=== PATIENT | male | born 1945 | race Caucasian/White ===

== ENCOUNTER 2022-11-20 09:47 | Outpatient (CLI) | payer MEDICARE | END 2022-11-20 09:48 | disposition home or self-care (01) | LOC: ULT 09:47 | PROVIDERS: ATTEND Internal Medicine Gastroenterology | DX: K21.9 Gastro-esophageal reflux disease without esophagitis (principal); E83.110 Hereditary hemochromatosis; R16.0 Hepatomegaly, not elsewhere classified; K80.20 Calculus of gallbladder without cholecystitis without obstruction | CPT/HCPCS: 76705 ==

== ENCOUNTER 2022-12-16 11:04 | Outpatient (CLI) | payer MEDICARE | END 2022-12-16 11:05 | disposition home or self-care (01) | LOC: SCSMRI 11:04 | PROVIDERS: ATTEND Nurse Practitioner Family | DX: M47.26 Other spondylosis with radiculopathy, lumbar region (principal); M96.1 Postlaminectomy syndrome, not elsewhere classified; M51.16 Intervertebral disc disorders with radiculopathy, lumbar region; M48.061 Spinal stenosis, lumbar region without neurogenic claudication; M89.38 Hypertrophy of bone, other site | CPT/HCPCS: 72148 ==

== ENCOUNTER 2023-05-08 11:12 | Outpatient (CLI) | payer MEDICARE | END 2023-05-08 11:13 | disposition home or self-care (01) | LOC: BICCT 11:12 | PROVIDERS: ATTEND Internal Medicine | DX: Z12.2 Encounter for screening for malignant neoplasm of respiratory organs (principal); F17.210 Nicotine dependence, cigarettes, uncomplicated; I25.10 Atherosclerotic heart disease of native coronary artery without angina pectoris | CPT/HCPCS: 71271 ==

== ENCOUNTER 2023-08-06 13:42 | Outpatient (CLI) | payer MEDICARE | END 2023-08-06 13:43 | disposition home or self-care (01) | LOC: CT 13:42 | PROVIDERS: ATTEND Orthopaedic Surgery | DX: M17.11 Unilateral primary osteoarthritis, right knee (principal); M16.0 Bilateral primary osteoarthritis of hip ==

== ENCOUNTER 2023-08-11 12:44 | Outpatient (CLI) | payer MEDICARE ==
[2023-08-11 13:52] LABS: #Basophils 0.07 10x3/uL (0.0-0.2); #Monocytes 0.68 10x3/uL (0.0-1.1); #Neutrophils 4.39 10x3/uL (1.5-8.4); %Basophils 0.9 % (0.0-2.0); %Eosinophils 2.7 % (0.0-6.0); %Lymphocytes 28.3 % (18.0-47.0); %Monocytes 9.1 % (0.0-10.0); %Neutrophils 58.7 % (40.0-75.0); Hematocrit 42.8 % (38.8-50.0); Hemoglobin 15.5 g/dL (13.5-17.5); Mean Corpuscular HGB CONC 36.2 g/dL (32.0-36.0); Mean Corpuscular Hemoglobin 34.1 pg (27.0-33.0); Mean Corpuscular Volume 94.3 fL (81.2-95.1); Platelet Count 247 10x3/uL (150-450); RBC Distribution Width 13.3 % (11.5-14.5); Red Blood Cell (RBC) Count 4.54 10x6/uL (4.32-5.72); White Blood Cell (WBC) Count 7.5 10x3/uL (3.5-10.5)
[2023-08-11 13:58] LABS: Prothrombin Time 10.8 sec (9.5-12.1)
[2023-08-11 14:00] LABS: Anion Gap 13 mmol/L (10-20); BUN (Urea Nitrogen) 10 mg/dL (8.4-25.7); Calc. Creatinine Clearance 0 mL/min (70-130); Calcium 9.3 mg/dL (7.8-10.44); Carbon Dioxide 25 mmol/L (23-31); Chloride 101 mmol/L (98-107); Estimated GFR 91; Glucose 95 mg/dL (83-110); Potassium 3.9 mmol/L (3.5-5.1); Sodium 135 mmol/L (136-145)
== END 2023-08-11 12:45 | disposition home or self-care (01) ==
LOC: LABBT 12:44
PROVIDERS: ATTEND Orthopaedic Surgery
DX: Z01.812 Encounter for preprocedural laboratory examination (principal); M17.11 Unilateral primary osteoarthritis, right knee
CPT/HCPCS: 80048; 85025; 85610; 87081

== ENCOUNTER 2023-08-18 05:48 | Observation (INO) | payer MEDICARE ==
[2023-08-11 13:13] VITALS: BMI 28.2
[2023-08-18] MEDS ORDERED: Ondansetron PF 4 MG/2 ML Vial ONE (08:05)
[2023-08-18] MEDS ORDERED: Lidocaine 2% 6 ML (Jelly) SYR ONE (08:05)
[2023-08-18] MEDS ORDERED: Lidocaine 2% PF 100 mg/5 ml Syringe ONE (08:05)
[2023-08-18] MEDS ORDERED: Rocuronium Bromide 10 MG/ML (10ML VIAL) ONE (08:06)
[2023-08-18] MEDS ORDERED: Dexamethasone 20 MG/5 ML VIAL ONE (08:06)
[2023-08-18] MEDS ORDERED: SUGAMMADEX SODIUM 200 MG/2 ML VIAL ONE ×2 (08:07→12:06)
[2023-08-18] MEDS ORDERED: PROPOFOL 20 ML ONE (08:07)
[2023-08-18] MEDS ORDERED: fentaNYL PF 100 MCG/2 ML SYRINGE ONE (08:07)
[2023-08-18] MEDS ORDERED: Sodium Chloride 0.9% 100 ML ONE ×2 (08:13→09:00)
[2023-08-18] MEDS ORDERED: Tranexamic Acid 1,000 MG/10 ML VIAL ONE ×2 (08:13→08:14)
[2023-08-18] MEDS ORDERED: Vancomycin (BATCH) 1.5 GM/300 ML BAG ONE (08:14)
[2023-08-18] MEDS ORDERED: Bupivacaine PF 0.5% 30 ML VIAL ONE (08:23)
[2023-08-18] MEDS ORDERED: Midazolam HCl 2 mg/2 ml Vial ONE (08:23)
[2023-08-18] MEDS ORDERED: fentaNYL 50 mcg/mL 1 mL Vial ONE ×4 (08:23→13:49)
[2023-08-18] MEDS ORDERED: EPINEPHrine 1 MG/ML VIAL ONE (08:59)
[2023-08-18] MEDS ORDERED: Bupivacaine 0.25% HCL 30 ML VIAL ONE (09:00)
[2023-08-18] MEDS ORDERED: CEFAZOLIN 2 GM VIAL ONE (09:00)
[2023-08-18] MEDS ORDERED: fentaNYL 50 mcg/mL 1 mL Vial SLOW IVP PRN (09:32)
[2023-08-18] MEDS ORDERED: Zolpidem Tartrate 5 MG TAB PO PRN (09:45)
[2023-08-18] MEDS ORDERED: Promethazine HCl 25 MG/ML VIAL IM PRN (09:45)
[2023-08-18] MEDS ORDERED: traMADol HCl 50 MG TAB PO PRN ×2 (09:45)
[2023-08-18] MEDS ORDERED: Ondansetron PF 4 MG/2 ML Vial IVP PRN (09:45)
[2023-08-18] MEDS ORDERED: HYDROcodone/Acetaminophen 10/325 mg Tablet PO PRN (09:45)
[2023-08-18] MEDS ORDERED: Ropivacaine 0.2% 550 ML 550 ML NERVE BLCK SCH (09:45)
[2023-08-18] MEDS ORDERED: PHENYLEPHRINE-NS 100 MCG/ML 10 ML SYRINGE ONE (10:08)
[2023-08-18] MEDS ORDERED: Acetaminophen 325 MG TAB PO PRN (12:08)
[2023-08-18] MEDS ORDERED: diphenhydrAMINE 25 MG CAP PO PRN (12:08)
[2023-08-18] MEDS ORDERED: HYDROmorphone 0.5 MG/0.5 ML SYRINGE ONE (14:26)
[2023-08-18] MEDS ORDERED: Ketorolac Tromethamine 30 MG (1 mL) VIAL ONE (14:28)
[2023-08-18] MEDS: Sodium Chloride 0.9% 1,000 ML IV SCH (16:15)
[2023-08-18] MEDS: Ketorolac Tromethamine 30 MG (1 mL) VIAL IVP SCH (16:15)
[2023-08-18] MEDS: CEFAZOLIN 2 GM in Sodium Chloride 0.9% 100 ML IVPB SCH (16:26)
[2023-08-18] MEDS: HYDROcodone/Acetaminophen 10/325 mg Tablet PO PRN (16:27)
[2023-08-18] MEDS: Aspirin 81 mg Enteric Coated Tablet PO SCH (20:41)
[2023-08-18] MEDS: Ferrous Gluconate 324 MG TAB PO SCH (20:41)
[2023-08-18] MEDS: Senokot S 8.6-50 MG TAB PO SCH (20:42)
[2023-08-19 04:31] LABS: Hematocrit 35.8 % (42.0-52.0); Hemoglobin 12.4 g/dL (14.0-18.0); Mean Corpuscular HGB CONC 34.6 g/dL (32.0-36.0); Mean Corpuscular Hemoglobin 33.2 pg (27.0-31.0); Mean Corpuscular Volume 95.7 fL (78.0-98.0); Mean Platelet Volume 9.8 fL (7.4-10.4); Platelet Count 213 10x3/uL (130-400); Red Blood Cell (RBC) Count 3.74 mill/uL (4.70-6.10)
[2023-08-19 07:52] VITALS: BP 146/80; TEMP 97.7
[2023-08-19] MEDS: Multivitamin W/ Minerals 1 TAB PO SCH (08:19)
== END 2023-08-19 10:20 | disposition home or self-care (01) ==
LOC: SDC 05:48 → SURG A 12:08
PROVIDERS: ADMIT Orthopaedic Surgery; ATTEND Orthopaedic Surgery
PROC: 0SRC0JZ Replacement of Right Knee Joint with Synthetic Substitute, Open Approach (ICD-10-PCS; principal; 2023-08-18)
DX: M17.11 Unilateral primary osteoarthritis, right knee (principal); I10 Essential (primary) hypertension; N40.0 Benign prostatic hyperplasia without lower urinary tract symptoms; E78.00 Pure hypercholesterolemia, unspecified; Z98.890 Other specified postprocedural states; Z79.899 Other long term (current) drug therapy; F17.210 Nicotine dependence, cigarettes, uncomplicated; Z88.0 Allergy status to penicillin
CPT/HCPCS: 27447; 64447; 73560 ×2; 85027; 93005; 97110 ×2; 97116; 97530 ×2; A4306; C1713; C1776; C1889; J0171; J0665 ×2; J1100; J1170; J1885 ×2; J2001; J2250; J2405; J2704; J2795; J3010; J3370; J3490 ×2; 36415; 93010